=== PATIENT | female | born 1985 | race Caucasian/White ===

== ENCOUNTER 2017-06-13 15:10 | Emergency (ER) | payer BC ==
[2017-06-13] MEDS ORDERED: Naproxen TAB* 250 MG PO ONE (15:29)
[2017-06-13 15:39] VITALS: BP 115/42
--- NOTE | 2017-06-13 15:39 | UC ---
Shoulder Pain HPI - HPI Summary HPI Summary: 31 yo patient who states she has been increasing her weight bearing exercises with dumbbells for the past 4 days and started feeling some left shoulder and arm pain which worsened over time. She states she took ibuprofen at 9am this morning. She still has pain 5/5 and cannot move her arm. - History of Current Complaint Stated Complaint: L ARM/ SHOULDER PAIN C Time Seen by Provider: 06/13/17 15:18 Hx Obtained From: Patient Hx Last Menstrual Period: 03/24/12 ?: No - iud mirena Onset/Duration: Gradual Onset, Lasting Days Timing: Constant Severity Initially: Mild Severity Currently: Moderate Location Of Pain: Is Discrete @ - left shoulder, Radiates To - left arm Pain Intensity: 5 Character: Sharp, Throbbing Aggravating Factor(s): Movement, Lifting Alleviating Factor(s): Rest, Elevation Associated Signs And Symptoms: Positive: Negative - Risk Factors Non-Orthopedic Risk Factor: Negative DVT Risk Factors: Negative Septic Arthritis Risk Factor: Negative - Allergies/Home Medications Allergies/Adverse Reactions: Allergies Allergy/AdvReac Type Severity Reaction Status Date / Time No Known Allergies Allergy Verified 07/10/12 18:31 PMH/Surg Hx/FS Hx/Imm Hx Other Endocrine History: prolactinoma Respiratory History: Asthma GI/ History: Gastroesophageal Reflux Psychological History: Depression - Surgical History Surgical History: Yes Surgery Procedure, Year, and Place: EXPLORATORY LAPAROTOMY 01/19 AT [facility] IN [place] - Social History Substance Use Type: None Review of Systems Constitutional: Negative Musculoskeletal: Arthralgia, Myalgia All Other Systems Reviewed And Are Negative: Yes Physical Exam Triage Information Reviewed: Yes Appearance: Well-Appearing, Pain Distress, Obese Vital Signs Reviewed: Yes Eyes: Positive: Conjunctiva Clear ENT: Positive: Pharynx normal Neck: Positive: Supple, Nontender, No Lymphadenopathy Respiratory: Positive: Chest non-tender, Lungs clear, Normal breath sounds, No respiratory distress, No accessory muscle use Cardiovascular: Positive: RRR, No Murmur, Pulses Normal, Brisk Capillary Refill Abdomen Description: Positive: Nontender, No Organomegaly, Soft Bowel Sounds: Positive: Present Musculoskeletal: Positive: ROM Limited @ - left arm and shoulder, tender to touch. mayda positive Shoulder Course/Dx - Course Course Of Treatment: Take pain medication as prescribed, f/u with orthopedics. Oral hydration - Differential Dx/Diagnosis Provider Diagnoses: left shoulder pain Discharge - Discharge Plan Condition: Stable Disposition: HOME Patient Education Materials: Shoulder Sprain (ED) Referrals: Khushboo Morris DO [Primary Care Provider] - Johann Hoskins MD [Medical Doctor] -
--- NOTE | 2017-06-13 16:28 | RAD ---
HISTORY: Left shoulder pain COMPARISONS: None VIEWS: 4, Frontal internal rotation, external rotation, outlet, and axillary views of the left shoulder FINDINGS: BONE DENSITY: Normal. BONES: There is no displaced fracture. JOINTS: There is no arthropathy. ALIGNMENT: There is no dislocation. SOFT TISSUES: Unremarkable. OTHER FINDINGS: None. IMPRESSION: NO ACUTE OSSEOUS INJURY. IF SYMPTOMS PERSIST, RECOMMEND REPEAT IMAGING.
[2017-06-13] MEDS ORDERED: HYDROcodone/ACETAMIN 5-325 MG* 1 TAB PO ONE (17:05)
== END 2017-06-13 17:23 | disposition home or self-care (01) ==
LOC: UCEAST 15:10
DX: M25.512 Pain in left shoulder (principal); D35.2 Benign neoplasm of pituitary gland; J45.909 Unspecified asthma, uncomplicated; K21.9 Gastro-esophageal reflux disease without esophagitis; F32.9 Major depressive disorder, single episode, unspecified
CPT/HCPCS: 99213; A9270-GY; G0463

== ENCOUNTER → 2018-02-04 16:27 | Emergency (ER) | payer SELFPAY ==
[~2018-02-04 16:27] MED LIST: Mouth Piece, Nicotine* 1 EACH CARTRIDGE INH PRN; Nicotine Inhaler* 10 MG AMP INH PRN
--- NOTE | 2018-02-04 17:56 | ED ---
Psychiatric Complaint - HPI Summary HPI Summary: This patient is a 32 year old F presenting to [facility] [place] by with a chief complaint of SI with plan to cut her wrists last PM. She acting on the thoughts but did demonstrate gesture by holding a knife to her wrist. She endorses a suicide attempt a long time ago, depression, anxiety. She denies prior psychiatric admissions, substance or EtOH abuse, recent medication changes. She currently does not have a psychiatrist. PMHx anxiety and depression, rx Buspar, Prozac, Omeprazole, Ativan, levothyroxine, and IUD. In addition to her psychiatric complaint, she notes abd and diffuse lower back pain since Thursday. Pt denies urinary sx, constipation, and diarrhea. She notes irregular menses secondary to IUD. - History Of Current Complaint Chief Complaint: [facility] Time Seen by Provider: 02/04/18 17:24 Hx Obtained From: Patient Hx Last Menstrual Period: 03/24/12 ?: No - IUD Onset/Duration: Gradual Onset, Lasting Hours, Still Present Timing: Constant Severity Initially: Severe Severity Currently: Mild Character: Depressed, Anxious Aggravating Factor(s): Nothing Alleviating Factor(s): Nothing Associated Signs And Symptoms: Positive: Negative Related History: Positive For: Prior Psychiatric Issues Negative For: Drug Abuse Counseling, Admissions Related To Substance Abuse Has Suicidal: Reports: Thoughts, With A Plan - cut wrist with knife, Demonstrates Gesture - knife to wrist, Has Prior Attempt(s) Has Homicidal: Denies: Thoughts - Allergies/Home Medications Allergies/Adverse Reactions: Allergies Allergy/AdvReac Type Severity Reaction Status Date / Time latex Allergy Rash And Verified 02/04/18 16:38 Itching Home Medications: Home Medications FLUoxetine CAP* [PROzac CAP*] 40 mg PO DAILY 02/04/18 [History Confirmed ] Levothyroxine TAB* [Synthroid TAB*] 75 mcg PO DAILY 02/04/18 [History Confirmed 02/04/18] Omeprazole CAP* [Prilosec CAP* 20 MG] 20 mg PO DAILY 02/04/18 [History Confirmed 02/04/18] Rizatriptan (NF) [Maxalt-Library Paraprofessional (NF)] 5 mg PO BID PRN 02/04/18 [History Confirmed 02/04/18] busPIRone TAB* [Buspar TAB*] 7.5 mg PO BID 02/04/18 [History Confirmed 02/04/18] PMH/Surg Hx/FS Hx/Imm Hx Endocrine/Hematology History: Reports: Hx Thyroid Disease, Other Endocrine/ Hematological Disorders - Pituitary tumor Denies: Hx Diabetes Cardiovascular History: Denies: Hx Hypertension, Hx Pacemaker/ICD Respiratory History: Reports: Hx Asthma Denies: Hx Chronic Obstructive Pulmonary Disease (COPD) GI History: Denies: Hx Ulcer History: Denies: Hx Dialysis, Hx Renal Disease Sensory History: Reports: Hx Contacts or Glasses Denies: Hx Deafness, Hx Hearing Aid Opthamlomology History: Reports: Hx Contacts or Glasses EENT History: Denies: Hx Deafness Psychiatric History: Reports: Hx Anxiety, Hx Depression, Hx Panic Disorder - ANXIETY, Hx Suicide Attempt Denies: Hx [facility] T[facility] - Surgical History Surgery Procedure, Year, and Place: EXPLORATORY LAPAROTOMY 01/19 AT [facility] IN [place] Infectious Disease History: No Infectious Disease History: Denies: Hx Hepatitis, Hx Human Immunodeficiency Virus (HIV), Traveled Outside the in Last 30 Days - Family History Known Family History: Positive: Hypertension, Diabetes, Other - CA, alcoholism both parents, substance abuse - Social History Occupation: Employed Full-time Lives: With Family Alcohol Use: None Substance Use Type: Reports: None Smoking Status (MU): Never Smoked Tobacco Review of Systems Negative: Fever, Chills Negative: Erythema Negative: Sore Throat Negative: Chest Pain Negative: Shortness Of Breath, Cough Positive: Abdominal Pain. Negative: Vomiting, Nausea, Other - constipation Positive: no symptoms reported. Negative: dysuria, hematuria Positive: Myalgia - lower back diffuse. Negative: Edema Negative: Rash Neurological: Other - NEGATIVE: Dizziness Positive: Anxious, Depressed, Other - SI with plan and gesture All Other Systems Reviewed And Are Negative: Yes Physical Exam - Summary Physical Exam Summary: Constitutional: Well-developed, Well-nourished, Alert. (-) Distressed Skin: Warm, Dry HENT: Normocephalic; Atraumatic Eyes: Conjunctiva normal Neck: Musculoskeletal ROM normal neck. (-) JVD, (-) Stridor, (-) Tracheal deviation Cardio: Rhythm regular, rate normal, Heart sounds normal; Intact distal pulses; The pedal pulses are 2+ and symmetric. Radial pulses are 2+ and symmetric. (-) Murmur Pulmonary/Chest wall: Effort normal. (-) Respiratory distress, (-) Wheezes, (-) Rales Abd: Soft, (-) epigastric tenderness, (-) Distension, (-) Guarding, (-) Rebound Musculoskeletal: (-) Edema Lymph: (-) Cervical adenopathy Neuro: Alert, Oriented x3 Psych: Mood and affect Normal Triage Information Reviewed: Yes Vital Signs On Initial Exam: Initial Vitals Temp Pulse Resp BP Pulse Ox 98.7 F 73 16 132/80 100 02/04/18 16:33 02/04/18 16:33 02/04/18 16:33 02/04/18 16:33 02/04/18 16:33 Vital Signs Reviewed: Yes Diagnostics - Vital Signs Vital Signs Temp Pulse Resp BP Pulse Ox 02/04/18 16:33 98.7 F 73 16 132/80 100 - Laboratory Result Diagrams: 02/04/18 17:44 02/04/18 17:44 Lab Statement: Any lab studies that have been ordered have been reviewed, and results considered in the medical decision making process. Course/Dx - Course Course Of Treatment: A 32-year-old F presents to the ED with a CC of SI with plan and gesture 1 day go. (+) depression, anxiety, diffuse lower back pain, abd pain. (-) urinary sx, abnl BM, recent medication changes. PMHx anxiety, depression, prior suicide attempt by cutting her wrist. Last night, pt endorses holding the knife to her wrist, but denies cutting at all. She denies having a current psychiatrist. In the ED course, pt was given a nicotine inhaler. Pt labs show high mono % and high creat. Pt will be signed out to Dr. Solomon at shift change pending MHE. - Differential Dx/Clinical Impression Provider Diagnosis: Suicidal ideation Discharge - Sign-Out/Discharge Documenting (check all that apply): Sign-Out Patient Signing out patient TO: Haritha Solomon - pending MHE - Discharge Plan Referrals: Khushboo Morris DO [Primary Care Provider] - - Attestation Statements Document Initiated by Scribe: Yes Documenting Scribe: Newton Bravo Provider For Whom Scribe is Documenting (Include Credential): Dr. Harsh Stanford MD Scribe Attestation: [place], scribed for Dr. Harsh Stanford MD on 02/04/18 at 2144.
[2018-02-04 17:58] LABS: ABS Basophils 0.1 10^3/ul (0-0.2); ABS Eosinophils 0.2 10^3/ul (0-0.6); ABS Lymphocytes 2.2 10^3/ul (1.0-4.8); ABS Monocytes 0.6 10^3/ul (0-0.8); ABS Neutrophils 4.4 10^3/ul (1.5-7.7); ABS Nucleated RBC 0 10^3/ul; Eosinophil % 2.1 % (0-6); Hematocrit 40 % (35-47); Hemoglobin 13.9 g/dl (12.0-16.0); Lymphocyte % 29.5 % (25-47); Mean Corpuscular HGB Conc 35 g/dl (31-36); Mean Corpuscular Hemoglobin 30 pg (27-31); Mean Corpuscular Volume 87 fL (80-97); Mean Platelet Volume 9.6 um3 (7.4-10.4); Nucleated Red Blood Cells % 0.1; Platelet Count 186 10^3/ul (150-450); Red Blood Count 4.61 10^6/ul (4.00-5.40); Red Cell Distribution Width 14 % (10.5-15); White Blood Count 7.3 10^3/ul (3.5-10.8)
[2018-02-04 18:41] LABS: EGFR Non-African American 62.8 (>60)
[2018-02-04 18:51] LABS: Urine Appearance Clear; Urine Blood Negative (Negative); Urine Color Yellow; Urine Ketones Negative (Negative); Urine Protein Negative (Negative); Urine Specific Gravity 1.009 (1.010-1.030); Urine Urobilinogen Negative (Negative)
[2018-02-04 18:56] VITALS: BP 121/63
--- NOTE | 2018-02-05 02:00 | ED ---
Progress - Progress Note Progress Note: This patient was signed out from Dr. Stanford on shift change awaiting MHE. After a MHE by Dr. Cornelius the patient was offered voluntary admission. She declined so the patient was deemed stable to be discharged with a dx of unspecified depressive disorder. - Consult/PCP Time Called: 23:39 Course/Dx - Course Course Of Treatment: This patient was signed out from Dr. Stanford on shift change awaiting MHE. After a MHE by Dr. Cornelius the patient was offered voluntary admission. She declined so the patient was deemed stable to be discharged with a dx of unspecified depressive disorder. - Diagnoses Provider Diagnoses: Major depressive disorder, recurrent, unspecified Discharge - Sign-Out/Discharge Documenting (check all that apply): Patient Departure, Receiving Sign-Out Receiving patient FROM: Harsh Stanford - Discharge Plan Condition: Stable Disposition: HOME Patient Education Materials: Depression (ED), Suicide Prevention (ED) Referrals: Khushboo Morris DO [Primary Care Provider] - Additional Instructions: Follow up with [facility] as instructed. return if worse or any new symptoms. Please also follow up with your primary care physician. - Billing Disposition and Condition Condition: STABLE Disposition: Home - Attestation Statements Document Initiated by Scribe: Yes Documenting Scribe: Daniel Pérez Provider For Whom Zachary is Documenting (Include Credential): Haritha Solomon MD Scribe Attestation: Daniel Finch, scribed for Haritha Solomon MD on 02/05/18 at 0322. Scribe Documentation Reviewed: Yes Provider Attestation: The documentation as recorded by the Daniel orellana accurately reflects the service I personally performed and the decisions made by , Haritha Solomon MD
== END | disposition home or self-care (01) ==
LOC: ED 16:27
DX: R45.851 Suicidal ideations (principal); R10.84 Generalized abdominal pain; M54.5 Low back pain; E07.9 Disorder of thyroid, unspecified; F41.0 Panic disorder [episodic paroxysmal anxiety]; F32.9 Major depressive disorder, single episode, unspecified; Z91.040 Latex allergy status
CPT/HCPCS: 36415; 80053; 80307; 80320; 80329; 81003; 84443; 85025; 99285; G0480

== ENCOUNTER 2020-01-30 09:46 | Inpatient (IN) ==
[2020-01-30 10:42] LABS: ABS Basophils 0.1 10^3/ul (0-0.2); ABS Eosinophils 0.2 10^3/ul (0-0.6); ABS Lymphocytes 1.8 10^3/ul (1.0-4.8); ABS Monocytes 0.6 10^3/ul (0-0.8); ABS Neutrophils 6.9 10^3/ul (1.5-7.7); Eosinophil % 1.9 %; Hematocrit 40 % (35-47); Hemoglobin 13.8 g/dL (12.0-16.0); Lymphocyte % 18.7 %; Mean Corpuscular HGB Conc 35 g/dL (31-36); Mean Corpuscular Hemoglobin 29 pg (27-31); Mean Corpuscular Volume 84 fL (80-97); Mean Platelet Volume 9.7 fL (7.4-10.4); Platelet Count 250 10^3/uL (150-450); Red Cell Distribution Width 15 % (10-15); White Blood Count 9.6 10^3/uL (3.5-10.8)
[2020-01-30 10:49] LABS: INR 1.09 (0.82-1.09)
[2020-01-30 10:50] LABS: Urine Appearance Clear; Urine Bilirubin Negative (Negative); Urine Blood Negative (Negative); Urine Color Straw; Urine Glucose Negative (Negative); Urine Ketones Negative (Negative); Urine Nitrite Negative (Negative); Urine Protein Negative (Negative); Urine Specific Gravity 1.004 (1.010-1.030); Urine Urobilinogen Negative (Negative)
[2020-01-30 10:58] LABS: ALT 14 U/L (7-52); AST 14 U/L (13-39); Albumin 4.4 g/dL (3.2-5.2); Albumin/Globulin Ratio 1.5 (1-3); Alkaline Phosphatase 59 U/L (34-104); Anion Gap 11 mmol/L (2-11); BUN/Creatinine Ratio 18.2 (8-20); Blood Urea Nitrogen 14 mg/dL (6-24); CO2 Carbon Dioxide 21 mmol/L (22-32); Calcium 9.6 mg/dL (8.6-10.3); Chloride 104 mmol/L (101-111); EGFR African American 103.8 (>60); EGFR Non-African American 85.8 (>60); Globulin 2.9 g/dL (2-4); Glucose 103 mg/dL (70-100); Potassium 4.3 mmol/L (3.5-5.0); Sodium 136 mmol/L (135-145); Total Protein 7.3 g/dL (6.4-8.9)
[2020-01-30 11:00] LABS: Urine Bacteria Absent (Absent); Urine Red Blood Cell Trace(0-2/hpf) (Absent); Urine Squamous Epithelial Cell Present (Absent); Urine White Blood Cell Trace(0-5/hpf) (Absent)
[2020-01-30 11:04] LABS: Urine Benzodiazepine Screen None Detected (None Detect); Urine Cannabinoids Screen None Detected (None Detect); Urine Opiates Screen None Detected (None Detect)
[2020-01-30 11:55] LABS: Acetaminophen < 15 mcg/mL; Alcohol, S < 10 mg/dL (<10); Salicylate < 2.50 mg/dL (<30)
[2020-01-30 13:23] LABS: HCG Pregnancy < 0.60 mIU/mL
[2020-01-30] MEDS ORDERED: RIZATRIPTAN 10 MG PO PRN (15:32)
[2020-01-30] MEDS ORDERED: Albuterol HFA INHALER 8 gm MDI INH PRN (17:01)
[2020-01-31] MEDS: CMCS:Omeprazole 20 mg CAP (NF) PO SCH (08:23)
[2020-01-31 08:54] LABS: HDL Cholesterol 39.6 mg/dL
[2020-02-01] MEDS: Butalb/Acetamin/Caff TAB 325-50-40MG PO PRN ×2 (07:46→18:09)
[2020-02-01] MEDS: CMCS:Omeprazole 20 mg CAP (NF) PO SCH (07:49)
[2020-02-01] MEDS ORDERED: RIZATRIPTAN 10 MG PO PRN (10:53)
[2020-02-02] MEDS: CMCS:Omeprazole 20 mg CAP (NF) PO SCH (09:21)
[2020-02-03 10:49] VITALS: BP 118/72
[2020-02-03] MEDS: CMCS:Omeprazole 20 mg CAP (NF) PO SCH (11:05)
== END 2020-02-03 12:15 | disposition home or self-care (01) | DRG 751 ==
LOC: ED 09:46 → BSU 15:23
PROVIDERS: ADMIT Psychiatry & Neurology Psychiatry; ATTEND Psychiatry & Neurology Psychiatry

== ENCOUNTER 2021-02-13 05:35 | Inpatient (IN) ==
[2021-02-13] MEDS ORDERED: Buffered Lidocaine 1% SYRIN 1 ml INTRADERM ONE (06:00)
[2021-02-13] MEDS ORDERED: Famotidine IV 10 MG/ML 2 ml VIAL (20 mg) IV ONE (06:00)
[2021-02-13] MEDS ORDERED: Lactated Ringers 1000 ml BAG 1,000 ML IV SCH (06:00)
[2021-02-13] MEDS ORDERED: Heparin 5000 UNITS/ML 1 mL VIAL ONE (06:23)
[2021-02-13] MEDS ORDERED: ceFAZolin 1 GM ADVAN 1 GM ADDV.VIAL IVPB ONE (06:23)
[2021-02-13] MEDS ORDERED: ceFAZolin 2 GM in NS PREMIX 2 GM/100 ML BAG IVPB ONE (06:23)
[2021-02-13] MEDS ORDERED: Famotidine IV 10 MG/ML 2 ml VIAL (20 mg) ONE (06:24)
[2021-02-13] MEDS ORDERED: fentaNYL 250 mcg/5 ml 50 MCG/ML 5 ml VIAL (250 MCG) ONE (06:49)
[2021-02-13] MEDS ORDERED: Midazolam 2 mg/2 ml VIAL 1 mg/ml 2 ml VIAL (2 mg) ONE (06:49)
[2021-02-13] MEDS ORDERED: Ondansetron 4 mg VIAL 2 MG/ML 2 ml VIAL ONE ×2 (06:49→11:12)
[2021-02-13] MEDS ORDERED: Lidocaine 2% PF 5 ML VIAL ONE (06:49)
[2021-02-13] MEDS ORDERED: Rocuronium 50 mg VIAL 10 mg/ml 5 ml VIAL (50 mg) ONE ×2 (06:49→09:11)
[2021-02-13] MEDS ORDERED: Dexamethasone IV 4 MG/ML VIAL 1 ml VIAL ONE (06:49)
[2021-02-13] MEDS ORDERED: Lidocaine 1% w EPI 1:100,000 MDV 20 ML VIAL ONE (07:23)
[2021-02-13] MEDS ORDERED: Bupivacaine 0.5% SDV PF 30ML VIAL ONE (07:24)
[2021-02-13] MEDS ORDERED: Methylene Blue 0.5 % 50 MG/10 ML AMP IV ONE (07:25)
[2021-02-13] MEDS ORDERED: Acetaminophen IV 1 GM/100ML 100 ML IV ONE (09:51)
[2021-02-13] MEDS ORDERED: HYDROmorphone 1 MG/1 ML SYRINGE IV SLOW PU PRN (11:00)
[2021-02-13] MEDS ORDERED: fentaNYL 100 mcg/2 ml 50 MCG/ML VIAL IV PRN (11:03)
[2021-02-13] MEDS ORDERED: DiMENhydriNATE IV 50 mg/ml 1 ml VIAL IV PUSH PRN (11:03)
[2021-02-13] MEDS ORDERED: Ondansetron 4 mg VIAL 2 MG/ML 2 ml VIAL IV PRN (11:03)
[2021-02-13] MEDS ORDERED: Naloxone 0.4 mg VIAL 0.4 mg/ml 1 ml VIAL IV PRN (11:03)
[2021-02-13] MEDS ORDERED: fentaNYL 100 mcg/2 ml 50 MCG/ML VIAL ONE (11:08)
[2021-02-13] MEDS: Ondansetron 4 mg VIAL 2 MG/ML 2 ml VIAL IV PRN ×2 (11:12→17:58)
[2021-02-13] MEDS: Lactated Ringers 1000 ml BAG 1,000 ML IV SCH ×2 (13:17→19:15)
[2021-02-13] MEDS: Heparin 5000 UNITS/ML 1 mL VIAL SUBCUT SCH ×2 (13:34→21:29)
[2021-02-13] MEDS: HYDROmorphone 0.5 MG/0.5 ML SYRINGE IV SLOW PU PRN (13:35)
[2021-02-13] MEDS: Famotidine IV 10 MG/ML 2 ml VIAL (20 mg) IV SLOW PU SCH (21:29)
[2021-02-14] MEDS: Ondansetron 4 mg VIAL 2 MG/ML 2 ml VIAL IV PRN (01:13)
[2021-02-14] MEDS: Lactated Ringers 1000 ml BAG 1,000 ML IV SCH (01:13)
[2021-02-14] MEDS: HYDROmorphone 0.5 MG/0.5 ML SYRINGE IV SLOW PU PRN (01:14)
[2021-02-14] MEDS: Heparin 5000 UNITS/ML 1 mL VIAL SUBCUT SCH ×2 (05:55→14:01)
[2021-02-14] MEDS: Famotidine IV 10 MG/ML 2 ml VIAL (20 mg) IV SLOW PU SCH (08:15)
[2021-02-14] MEDS ORDERED: D5W 1/2 NS KCl 20 meq 1000 ml 1,000 ML IV SCH (11:00)
[2021-02-14 11:49] VITALS: BP 115/69
[2021-02-16] MEDS ORDERED: Scopolamine PATCH Remove NOTE PATCH OFF ONE (06:00)
== END 2021-02-14 16:15 | disposition home or self-care (01) | DRG 403 ==
LOC: AA 05:35 → SSU 12:44
PROVIDERS: ADMIT Surgery; ATTEND Surgery